=== PATIENT | female | born 1935 | race Caucasian/White ===

== ENCOUNTER 2017-01-06 12:34 | Inpatient (IN) | payer MEDICARE ==
[~2017-01-06] VITALS: Ht 162.6 cm; Wt 64.9 kg
--- NOTE | ~2017-01-06 | HEMODYNAMI ---
PATIENT:ALLAN JAIN MEDICAL RECORD: [id number] : 31 LOCATION:D.MS [facility] ADMISSION DATE: 01/06/17 Generatedon:01/14/201712:50 Patient name: ALLAN JAIN Patient #: [id number] SSN: DO B: 1935 Date of study: 01/14/2017 Page: Of Hemodynamic Procedure Report Patient Data Patient Demographics Procedure consent was obtained First Name: ALLAN Gender: Female Last Name: SUSY : 1935 Middle Initial: ALLAN Age: 81 year(s) Patient #: [id number] Race: Unknown Additional ID: [id number] Contact details [address]: [address] [place] [address] [address] State: [place] City: [place] Zip code: [address] Admission Admission Data Admission Date: 01/06/2017 Admission Time: 14:16 Room #: D.2205 Procedure Procedure Types Cath Procedure Peripheral Cath Diagnostic Procedure Miscellaneous Procedure Description Procedure Date Procedure Date: 01/14/2017 Procedure Start Time: 11:56 Procedure Staff Name Function Andrew Bradshaw MD Performing Physician Gloria Alcantara RT Scrub Malena Babcock RN Nurse Maykel Solis RT Monitor Procedure Data Cath Procedure Fluoroscopy Diagnostic fluoroscopy Total fluoroscopy Time: 8.3 time: 8.3 min min Diagnostic fluoroscopy Total fluoroscopy dose: 183 dose: 183 mGy mGy Procedure Medications Medication Administration Route Dosage Oxygen NC 3 l/min Lidocaine 1% added to field 20 Heparin Flush Bag added to field 1 bags (1000units/500ml NS) Benadryl I.V. 50 mg Fentanyl I.V. 50 mcg Fentanyl I.V. 50 mcg Vancomycin I.V.P.B 500 mg Versed I.V. 1 mg Fentanyl I.V. 50 mcg Versed I.V. 0.5 mg Fentanyl I.V. 25 mcg Versed I.V. 0.5 mg Hemodynamics Rest Heart Rate: 89 (bpm) Snapshots Pre Cath Intra NCS Post Cath Vital Signs Time Heart Resp SPO2 NIBP (mmHg) Rhythm Pain Status Sedation Rate (ipm) (%) Level (bpm) 11:37:15 93 14 100 152/76(124) NSR 5 (11) , 10(A) Very distressing 11:41:40 94 15 100 153/78(113) NSR 3 (11) , 10(A) Tolerable 11:46:02 93 31 100 155/77(106) NSR 3 (11) , 10(A) Tolerable 11:50:22 91 15 100 145/71(116) NSR 0 (11) , No 10(A) pain 11:54:44 92 12 100 142/70(102) NSR 0 (11) , No 10(A) pain 11:59:06 91 11 100 144/62(105) NSR 0 (11) , No 10(A) pain 12:03:30 90 14 100 136/66(100) NSR 0 (11) , No 9(A) pain 12:08:54 88 16 100 136/64(83) NSR 0 (11) , No 9(A) pain 12:13:20 91 11 99 149/57(119) NSR 0 (11) , No 9(A) pain 12:18:36 89 13 99 154/67(127) NSR 0 (11) , No 9(A) pain 12:23:04 90 13 99 154/73(121) NSR 0 (11) , No 9(A) pain 12:27:32 91 15 98 146/76(112) NSR 0 (11) , No 9(A) pain 12:31:55 89 13 96 129/73(93) NSR 0 (11) , No 9(A) pain 12:36:15 89 12 94 135/62(67) NSR 0 (11) , No 9(A) pain 12:41:14 86 19 93 Measuring NSR 0 (11) , No 9(A) pain 12:41:30 88 19 95 146/66(95) NSR 0 (11) , No 9(A) pain 12:49:30 No Cuff NSR 0 (11) , No 9(A) pain Medications Time Medication Route Dose Verified Delivered Reason Notes E ffectiveness by by 11:37:35 Oxygen NC 3 Malena Malena Per protocol l/min King ROMELIA Babcock RN 11:37:46 Lidocaine 1% added 20ml Malena Malena for local to vial King ROMELIA Babcock ROMELIA anesthetic field 11:37:59 Heparin Flush added 1 Malena Malena used for Bag to bags King ROMELIA Babcock RN procedure (1000units/500ml field NS) 11:38:15 Benadryl I.V. 50 mg Malena Malena for sedation King ROMELIA Babcock RN 11:38:30 Fentanyl I.V. 50 Malena Malena back pain mcg King ROMELIA Babcock RN 03/06 11:42:59 Fentanyl I.V. 50 Malena Malena back pain mcg King ROMELIA Babcock RN 01/04 11:57:20 Vancomycin I.V.P.B 500 Malena Malena prophylactic mg King ROMELIA Babcock RN 12:01:46 Versed I.V. 1 mg Malena Malena for sedation King ROMELIA Babcock RN 12:06:33 Fentanyl I.V. 50 Malena Malena for sedation mcg King ROMELIA Babcock RN 12:19:23 Versed I.V. 0.5 Malena Malena for sedation mg King ROMELIA Babcock RN 12:19:30 Fentanyl I.V. 25 Malena Malena for sedation mcg King ROMELIA Babcock RN 12:22:58 Versed I.V. 0.5 Malena Malena for sedation mg King ROMELIA Babcock RN Procedure Log Time Note 11:24:02 Maykel Solis RT (R) (CV) sent for patient. Start room use. 11:24:08 Time tracking: Regular hours 11:24:12 Plan of Care:Hemodynamics will remain stable., Cardiac rhythm will remain stable., Comfort level will be maintained., Respiratory function will remain adequate., Patient/ family verbilizes understanding of procedure., Procedure tolerated without complication., Recovers from procedure without complications.. 11:24:46 Patient received from Med/Surg to IR Alert and oriented. Tansferred to table in Prone position. 11:24:48 Correct patient and procedure confirmed by team. 11:24:50 Signed procedure consent form obtained from patient. 11:24:51 ECG and BP/O2 sat monitors applied to patient. 11:24:55 Rhythm: sinus rhythm 11:24:56 Full Disclosure recording started 11:24:57 - 11:25:02 H&P Date Dictated: 01/14/2017 Within 30 days and on chart.. 11:25:03 Pre-procedure instructions explained to patient. 11:25:04 Pre-op teaching completed and patient verbalized understanding. 11:25:05 Family in waiting room. 11:25:13 Patient NPO since Midnight. 11:25:40 Is patient on blood thinner?No 11:26:00 ----Pre-sedation anethsthesia assessment.---- 11:26:03 Previous problem with sedation/anesthesia? No ? 11:26:10 Snore? Yes 11:26:11 Sleep apnea? No 11:26:14 Deviated septum? No 11:26:15 Opens mouth fully? Yes 11:26:16 Sticks out tongue? Yes 11:26:19 Airway obstruction? No ? 11:26:22 Dentures? Yes ? 11:26:30 Patient pain scale 0/10 no pain. 11:26:38 IV patent on arrival in left wrist with 0.9% NaCl at [facility]. 11:26:48 Use device set IR Diagnostic 11:26:49 Sterile Angiographic Pack opened to sterile field. 11:26:50 Bag Decanter opened to sterile field. 11:35:53 Baseline sample Acquired. 11:35:53 Vital chart was started 11:36:18 Thoracic area was prepped with chlora-prep and draped in sterile fashio n 11:36:22 Alarms reviewed by R. N. 11:36:23 Sharps counted by scrub and verified by R.N. 11:37:35 Oxygen 3 l/min NC was administered by Malena Babcock RN; Per protocol; 11:37:46 Lidocaine 1% 20ml vial added to field was administered by Malena Babcock RN; for local anesthetic; 11:37:59 Heparin Flush Bag (1000units/500ml NS) 1 bags added to field was administered by Malena Babcock RN; used for procedure; 11:38:15 Benadryl 50 mg I.V. was administered by Malena Babcock RN; for sedation; 11:38:30 Fentanyl 50 mcg I.V. was administered by Malena Babcock RN; back pain 5/10 ; 11:42:59 Fentanyl 50 mcg I.V. was administered by Malena Babcock RN; back pain 01/04 ; 11:56:12 Physician arrived :: --------ALL STOP TIME OUT------ 11:56:13 Final Timeout: patient, procedure, and site verified with staff and physician. All members of the team are in agreement. 11:56:18 Thoracic site verified by team. 11:56:22 Physical assessment completed. ASA score P 3 - A patient with severe systemic disease as per Andrew Bradshaw MD. 11:56:25 Sedation plan: IV Moderate Sedation Versed, Fentanyl 11:56:36 Procedure started. 11:56:43 Local anesthetic to Thoracic area with Lidocaine 1% by Andrew Bradshaw MD.INITIAL ACCESS ONLY 11:57:20 Vancomycin 500 mg I.V.P.B was administered by Malena Babcock RN; prophylactic; 12:01:46 Versed 1 mg I.V. was administered by Malena Babcock RN; for sedation; 12:06:33 Fentanyl 50 mcg I.V. was administered by Malena Babcock RN; for sedation; 12:15:28 bx t-11 taken 12:18:12 TC 15/2 VERT AUGMENTATION opened to sterile field. 12:18:13 Tc BONE BX 11GA kit opened to sterile field. 12:18:14 Tc 11G Curved Needle opened to sterile field. 12:18:16 TC AUTOPLEX MIXER W/VHV opened to sterile field. 12:19:23 Versed 0.5 mg I.V. was administered by Malena Babcock RN; for sedation; 12:19:30 Fentanyl 25 mcg I.V. was administered by Malena Babcock RN; for sedation; 12:22:58 Versed 0.5 mg I.V. was administered by Malena Babcock RN; for sedation; 12:32:23 Procedure ended.(Physican Out) 12:32:47 Fluoroscopy time 08.30 minutes. 12:32:53 Fluoroscopy dose: 183 mGy 12:32:53 Flurop Dose total: 183 12:33:01 Sharps counted by scrub and verified by R.N. 12:33:03 Insertion/operative site no bleeding no hematoma. 12:33:15 Post Thoracic area:stable 12:33:30 Post-procedure physical assessment completed. ASA score P 3 - A patient with severe systemic disease as per Andrew Bradshaw MD. 12:33:34 Post procedure rhythm: sinus rhythm 12:33:58 Post procedure instruction explained to patient.Patient verbalizes understanding. 12:33:59 Procedure and supply charges have been captured, reviewed, submitted an d are correct. 12:49:46 Report given to Med/Surg. 12:49:54 Patient transfered to Med/Surg with Bed. 12:50:20 Vital chart was stopped Device Usage Item Name Manufacture Quantity Catalog Hospital Part Current Minim al Lot# / Number Charge Number Stock Stock Serial# Code Sterile Cardinal 1 [id number] 5 Angiographic Health Pack Bag Decanter Microtek 1 [id number] [id number] [id number] 5 [employer] TC 15/2 Tc 1 [id number] [id number] [id number] [id number] 5 VERT AUGMENTATION Tc BONE [place] 1 [id number] [id number] [id number] 517023 5 BX 11GA kit Tc 11G [place] 1 [phone] 572193 346702 5 Curved Needle TC [place] 1 [phone] 986380 07778 175180 5 AUTOPLEX MIXER W/VHV Signature Audit [place] Stage Time Signature Unsigned Intra-Procedure 01/14/2017 Maykel 12:50:18 PM [place] RT (R) (CV) Signatures Monitor : Maykel Signature : Carmelinaield RT Date : Time : [facility] [address] [place] [address]
[~2017-01-06 12:34] MED LIST: AMBIEN10 MG PO; ANUSOL-HC 2.5%30 GM RC; CALTRATE 600 M600 M1 PO; CATAPRES0.1 MG PO; CELEXA40 MG PO; CYCLOBENZAPRINE10 MG PO; IPRAT-ALBUT 0.5-3 ML UPD; MELATONIN 10 M1 EACH PO; NEURONTIN 300300 MG PO; NORCO 7.5/325 T1 TA1 PO; NORVASC10 MG PO; PLAVIX75 MG PO; PREVACID30 MG PO; SINGULAIR10 MG PO; XANAX0.25 MG PO; ZESTRIL40 MG PO
[2017-01-06 13:22] LABS: BASOPHILS 0.2 % (0.0-2.0); EOSINOPHILS 0.7 % (0-7); HEMATOCRIT 41.9 % (36.0-48.0); HEMOGLOBIN 14.2 g/dL (12-16); IMMATURE GRANULOCYTES 0.4 % (0-5); LYMPHOCYTES 19.1 % (15-50); MCH 30.1 pg (26.0-34.0); MCHC 33.9 g/dL (31.0-37.0); MONOCYTES 8.7 % (2-11); NEUTROPHILS 70.9 % (40-80); RBC 4.71 10x6/uL (4.00-5.40); RDW 12.7 % (11.5-14.5); WBC 12.2 10x3/uL (4.8-10.8)
[2017-01-06 13:25] LABS: PLATELET COUNT 344 10x3/uL (130-400)
[2017-01-06 13:33] LABS: ALBUMIN 3.6 g/dL (3.4-5.0); ALKALINE PHOSPHATASE 75 U/L (46-116); ALT (SGPT) 45 U/L (10-68); BILIRUBIN - TOTAL 0.74 mg/dL (0.2-1.3); CALC OSMOLALITY 280 mosm/kg (275-300); CALCIUM 8.1 mg/dL (8.5-10.1); CARBON DIOXIDE 27.4 mmol/L (21.0-32.0); CHLORIDE - SERUM 101 mmol/L (98-107); CREATININE - SERUM 1.1 mg/dL (0.6-1.3); GLUCOSE 95 mg/dL (74-106); POTASSIUM - SERUM 4.1 mmol/L (3.5-5.1); SODIUM 138 mmol/L (136-145); UREA NITROGEN 27 mg/dL (7-18); eGFR NON AFRICAN AMERICAN 50 mL/min (90-120)
[2017-01-06 13:54] LABS: PRO BNP 232 pg/mL (0-450)
[2017-01-06 13:55] LABS: CKMB 14.8 U/L (0.0-3.6); CREATINE KINASE 1288 UL (21-215); TROPONIN-I < 0.017 ng/mL (0.000-0.060)
[2017-01-06 14:05] LABS: INR 1.03 (0.85-1.17); PROTIME 13.3 SECONDS (11.6-15.0)
[2017-01-06 14:08] LABS: APTT < 20.0 SECONDS (22.8-39.4)
--- NOTE | 2017-01-06 14:30 | NUR ---
REPORT REC'D FROM ROMELIA SAGASTUME. ROOM READY AND AWAITING PT ARRIVAL.
--- NOTE | 2017-01-06 15:21 | NUR ---
SPOKE WITH SHASHANK FROM MRI. WILL ALERT HER UPON PT ARRIVAL.
--- NOTE | 2017-01-06 17:31 | NUR ---
PT REC'D TO ROOM FROM MRI. ALERT TO SELF, PLACE, AND SITUATION ONLY. THINKS IT IS 1976. EASILY REORIENTED. UNABLE TO IDENTIFY DAUGHTER, MINH AT BEDSIDE. FACE IS FLUSHED AND PT IS SWEATING. KEEPS SAYING, "PAIN." REGULAR HEART RATE AND RHYTHM. TELEMETRY APPLIED. RUNNING 90 SR. LUNG SOUNDS CLEAR AND EQUAL BILAT. BOWEL SOUNDS ACTIVE X4 QUADRANTS. HAND GEAR TOOTH GRINDING MACHINE OPERATOR STRONG AND EQUAL, FOOT PUMP WEAK BUT EQUAL. BED LOW, CALL LIGHT IN REACH, DENIES NEEDS. CPOC.
--- NOTE | 2017-01-06 18:14 | NUR ---
DR. MIDDLETON PAGED REGARDING PAIN MEDICATION.
[2017-01-06 18:47] VITALS: BP 113/62; BMI 24.6
--- NOTE | 2017-01-06 19:20 | NUR ---
ASSESSMENT COMPLETED, 22 G IV SITED IN R WRIST X2 ATTEMPTS, STAS WELL, FALL PRECAUTIONS IN PLACE, CL IN REACH, WILL MONITOR
--- NOTE | 2017-01-06 19:51 | NUR ---
PRN HYDROCODONE GIVEN FOR C/O BACK PAIN 08/06, STAS WELL, FALL PRECAUTIONS IN PLACE, CL IN REACH, WILL MONITOR
[2017-01-06 21:00] VITALS: BP 174/57
--- NOTE | 2017-01-06 21:01 | NUR ---
DR. JHONATHAN LUJAN, WILL IMPLEMENT ORDERS WHEN RECIEVED
--- NOTE | 2017-01-06 23:00 | NUR ---
IV FLUID STARTED, [address] USING CORRECTIONS CADET PER ORDERS, STAS WELL , LINEN/GOWN CHANGE DONE, REPOSITIONED IN BED, MAGO ALARM ON, SR'S UP ,CL IN REACH
[2017-01-07] VITALS: BP 150/60
--- NOTE | 2017-01-07 00:35 | NUR ---
PRN PAIN MEDS GIVEN FOR C/O BACK PAIN 06/06, REPOSITIONED IN BED, STAS WELL, FALL PRECAUTIONS AND ALARM IN PLACE, CL IN REACH
--- NOTE | 2017-01-07 03:33 | NUR ---
RESTING WITH EYES CLOSED, RESP WITH EASE, NO SS OF PAIN OR DISTRESS NOTED, FALL PRECAUTIONS IN PLACE, CL IN REACH
[2017-01-07 04:00] VITALS: BP 175/61
--- NOTE | 2017-01-07 08:03 | NUR ---
PT ASSESSMENT COMPLETE AWAKE AND ALERT ORIENTED X 3 LUNGS CLEAR BILATERALLY HR IRREGULAR ON TELEMETRY NOTED UCAF RATE 128 WILL MONITOR. BSA X 4 QUADS KONG CATHETER PATENT TO CLEAR YELLOW URINE PER GRAVITY FLOW. HAS BED ALARM IN PLACE. WILL MONITOR
[2017-01-07 08:37] VITALS: BP 134/83
--- NOTE | 2017-01-07 09:00 | NUR ---
PATIENT IN MID LARA POSITION RESTING QUIETLY. NO SIGNS OF DISTRESS NOTED. PRIMARY NURSE LAVELLE CAMILO AT BEDSIDE. SIDE RAILS UP X2. BED IN LOW POSITION. CALL LIGHT IN REACH.
--- NOTE | 2017-01-07 09:18 | NUR ---
PT GIVEN NORCO PER ORDER FOR PAIN CONTROL STATED PAIN LEVEL 10 WILL MONITOR EFFECTIVENESS.
[2017-01-07 10:14] LABS: BASOPHILS 0.2 % (0.0-2.0); EOSINOPHILS 0.2 % (0-7); HEMATOCRIT 44.4 % (36.0-48.0); HEMOGLOBIN 15.1 g/dL (12-16); IMMATURE GRANULOCYTES 0.3 % (0-5); LYMPHOCYTES 15.4 % (15-50); MCH 30.4 pg (26.0-34.0); MCV 89.3 fL (80.0-100.0); MEAN PLATELET VOLUME 9.8 fL (7.4-10.4); NEUTROPHILS 76.9 % (40-80); PLATELET COUNT 365 10x3/uL (130-400); RBC 4.97 10x6/uL (4.00-5.40); RDW 12.9 % (11.5-14.5); WBC 11.9 10x3/uL (4.8-10.8)
[2017-01-07] MEDS ORDERED: LIPITOR20 MG PO (10:29)
[2017-01-07] MEDS ORDERED: COREG6.25 MG PO (10:29)
[2017-01-07 10:42] LABS: ALBUMIN 3.5 g/dL (3.4-5.0); ALKALINE PHOSPHATASE 79 U/L (46-116); ALT (SGPT) 45 U/L (10-68); BILIRUBIN - TOTAL 0.89 mg/dL (0.2-1.3); CALCIUM 8.7 mg/dL (8.5-10.1); CARBON DIOXIDE 24.1 mmol/L (21.0-32.0); CHLORIDE - SERUM 105 mmol/L (98-107); GLUCOSE 113 mg/dL (74-106); POTASSIUM - SERUM 3.8 mmol/L (3.5-5.1); PROTEIN - SERUM 7.1 g/dL (6.4-8.2); SODIUM 141 mmol/L (136-145); eGFR NON AFRICAN AMERICAN 85 mL/min (90-120)
[2017-01-07 10:43] LABS: CALC OSMOLALITY 283 mosm/kg (275-300); CREATININE - SERUM 0.7 mg/dL (0.6-1.3); UREA NITROGEN 18 mg/dL (7-18)
--- NOTE | 2017-01-07 11:41 | NUR ---
BEDSIDE SWALLOW STUDY IN PROGRESS AT THIS TIME PER PATIENT REGISTRATION SUPERVISOR. WILL AWAIT RESULTS
[2017-01-07 12:30] VITALS: BP 158/75
[2017-01-07 13:20] VITALS: Ht 162.6 cm; Wt 64.9 kg
--- NOTE | 2017-01-07 13:43 | NUR ---
PAIN TREATED PER ORDER AT THIS TIME WITH NORCO. CALL LIGHT IN REACH SIDE RAILS UP X 2
--- NOTE | 2017-01-07 16:10 | NUR ---
PT HAD BONE SCAN DONE JUST RETURNED TO ROOM TOLERATED WELL REPOSITIONED PER STAFF FOR COMFORT.
[2017-01-07 16:53] VITALS: BP 169/69
--- NOTE | 2017-01-07 18:10 | NUR ---
OT NOTE: PT COMPLETED SELF GROOMING WITH SET UP. PT COMPLETED BUE AROM EXS FOR INCREASED ACTIVITY TOLERANCE. PT COMPLETED BED MOB WITH CGA/MIN. THANK YOU, SUSAN SHEFFIELD/Kareem
--- NOTE | 2017-01-07 19:45 | NUR ---
ASSESSMENT COMPLETED, NO ACUTE DISTRESS NOTED, FAMILY IN ROOM, DENIES NEEDS AT THIS TIME, FALL PRECAUTIONS IN PLACE, CL IN REACH
[2017-01-07 20:00] VITALS: BP 138/61
--- NOTE | 2017-01-07 21:14 | NUR ---
PRN NORCO GIVEN FOR C/O BACK PAIN 07/07 ALONG WITH ROUTINE MEDS, STAS WELL, SAFETY PRECAUTIONS IN PLACE, CL IN REACH
--- NOTE | 2017-01-07 23:26 | NUR ---
RESTING WITH EYES CLOSED, RESP WITH EASE, NO DISTRESS NOTED, SR'S UP , CL IN REACH
--- NOTE | 2017-01-08 00:09 | NUR ---
NS HUNG PER MAR, PT REPOSITIONED IN BED, STAS WELL, CL IN REACH
[2017-01-08 04:00] VITALS: BP 160/63
[2017-01-08 05:22] LABS: BASOPHILS 0.3 % (0.0-2.0); EOSINOPHILS 1.9 % (0-7); HEMOGLOBIN 13.8 g/dL (12-16); IMMATURE GRANULOCYTES 0.2 % (0-5); LYMPHOCYTES 22.2 % (15-50); MCH 29.4 pg (26.0-34.0); MCHC 32.9 g/dL (31.0-37.0); MCV 89.4 fL (80.0-100.0); MEAN PLATELET VOLUME 9.9 fL (7.4-10.4); MONOCYTES 7.7 % (2-11); NEUTROPHILS 67.7 % (40-80); PLATELET COUNT 353 10x3/uL (130-400); RDW 12.7 % (11.5-14.5); WBC 12.1 10x3/uL (4.8-10.8)
--- NOTE | 2017-01-08 05:36 | NUR ---
PROTONIX GIVEN PER MAR, STAS WELL, DENIES PAIN OR NEEDS, SAFETY PRECAUTIONS IN PLACE, CL IN REACH
[2017-01-08 05:37] LABS: ALBUMIN 3.2 g/dL (3.4-5.0); ANION GAP 11.8 mmol/L (8-16); BILIRUBIN - TOTAL 0.67 mg/dL (0.2-1.3); CALCIUM 8.5 mg/dL (8.5-10.1); CARBON DIOXIDE 26.6 mmol/L (21.0-32.0); CREATININE - SERUM 0.8 mg/dL (0.6-1.3); POTASSIUM - SERUM 3.4 mmol/L (3.5-5.1); PROTEIN - SERUM 6.3 g/dL (6.4-8.2)
--- NOTE | 2017-01-08 05:44 | NUR ---
SOLITARIO GAONA STARTED PER E. PROTOCOL FOR LEVEL OF 3.4, STAS WELL
--- NOTE | 2017-01-08 08:00 | NUR ---
PATIENT IN LOW LARA POSITION RESTING QUIETLY. RESPIRATIONS EVEN AND UNLABORED. SIDE RAILS UP X2. BED IN LOW POSITION. CALL LIGHT IN REACH.
--- NOTE | 2017-01-08 08:14 | NUR ---
PT ASSESSMENT COMPLETE AWAKE AND ALERT ORINETED X 3 LUNGS CLEAR BILATERALLY HAS PAIN WITH MOVEMENT TO MID BACK. REPOSITIONED FOR COMFORT PER STAFF CALL LIGHT IN REACH SIDE RAILS UP X 2 KONG PATENT TO CLEAR YELLOW URINE.
[2017-01-08 08:35] VITALS: BP 179/64
--- NOTE | 2017-01-08 10:34 | NUR ---
Rehab Prescreening Consult recieved and the chart has been reviewed. She is a good rehab candidate. Yesterday she did not participate in PT or OT due to pain. She has a IR as well as a Dr Deng consult pending. Rehab will follow her progress. The [facility] has been made aware. Maude Corea RN Clinical Liaison, Rehab
--- NOTE | 2017-01-08 10:43 | NUR ---
PT SITTING UP X 2 HRS IN CHAIR AT BEDSIDE PER ASSIST OF PHYSICAL THERAPY PT AMBULATED 8 FEET WITH ROLLING WALKER AND GAIT BELT.
[2017-01-08 13:05] VITALS: BP 161/72
--- NOTE | 2017-01-08 13:21 | NUR ---
OT NOTE: PT MORE ALERT TODAY , BUT STILL CONFUSED. PT CONSUMED APPROX HALF OF MEAL WITH SET UP OF TRAY; PRACTICED BED MOBILLITY WHICH WAS MUCH IMPROVED FROM YESTERDAY ( WAS MAX ASSIST , TODAY MIN/CGA)
--- NOTE | 2017-01-08 13:30 | NUR ---
Patient Name: ALLAN JAIN Admission Status: ER Accout number: [id number] Admission Date: 01-06-2017 : 1935 Admission Diagnosis: Attending: NIVIA Current LOS: 2 Anticipated DC Date: 01-11-2017 Planned Disposition: [facility] Facility Primary Insurance: MEDICARE A & B Discharge Planning Comments: CM TALKED WITH PATIENTS DAUGHTER (VIVIANA EPPS) REGARDING D/C NEEDS AND PLANS. PATIENT WAS LIVING WITH HER DAUGHTER AND FELL AND DR. KANG ADMITTED HER TO [facility] IN THE SKILLED FACILITY. PATIENT USES A WHEELCHAIR AT FACILITY. PATIENTS PCP IS DR. KANG AND PHARMACY IS [facility] ON [address] PATIENT WILL RETURN TO [facility] AND [facility] AT DISCHARGE. CM WILL CONTINUE TO FOLLOW PATIENT WITH D/C NEEDS AND PLANS. PCP DR. JORGE LUIS [facility] [address] [phone] VIVIANA EPPS (DAUGHTER) [phone] [facility]- [phone] Agricultural Economics Teacher: Prisca Kaur Is the patient Alert and Oriented? No 0 * How many steps to enter\exit or inside your home? 0 0 * PCP DR. KANG 0 * Pharmacy [facility] [address] 0 * Preadmission Environment [facility] Facility 0 * Facility Name [facility] 0 * ADLs Independent 0 * Equipment Wheelchair 0 * List name and contact numbers for known caregivers / representatives who currently or will assist patient after discharge: VIVIANA EPPS (DAUGHTER) [phone] 0 * Additional services required to return to the preadmission environment? Yes 0 * Can the patient safely return to the preadmission environment? Yes 0 * Has this patient been hospitalized within the prior 30 days at any hospital? No 0 Grand Total: 0
--- NOTE | 2017-01-08 13:40 | NUR ---
HAS HAD 20 MG DUCOLAX PER ORDER PER RECTUM WITH NO RESULTS OF THIS ITME BSA X 4 QUADS.
[2017-01-08 13:52] LABS: APPEARANCE HAZY (CLEAR); BACTERIA MODERATE /hpf (NONE SEEN); BILIRUBIN NEGATIVE (NEGATIVE); COLOR STRAW (YELLOW); EPITHELIAL CELLS OCC /hpf (0-5); GLUCOSE NEGATIVE (NEGATIVE); KETONE NEGATIVE (NEGATIVE); LEUKOCYTE ESTERASE 1+ (NEGATIVE); NITRITE NEGATIVE (NEGATIVE); PROTEIN NEGATIVE (NEGATIVE); SPECIFIC GRAVITY 1.015 (1.005-1.020); UROBILINOGEN NORMAL (NORMAL)
[2017-01-08 13:53] LABS: MUCUS <1+ /lpf (NONE SEEN)
[2017-01-08 17:41] VITALS: BP 146/58
--- NOTE | 2017-01-08 19:24 | NUR ---
PATIENT IS RESTING IN BED AND IS CONFUSED TO LOCATION AND TIME. PATIENT DENIES NEEDS AT THIS TIME. BED IN LOWEST POSTION AND CALL LIGHT WITHIN REACH. ENCOURAGED THE PATIENT TO USE HER CALL LIGHT IF SHE HAS NEEDS.
[2017-01-08 20:00] VITALS: BP 180/73
[2017-01-09] VITALS: BP 177/82
[2017-01-09 04:00] VITALS: BP 192/80
[2017-01-09 06:23] LABS: BASOPHILS 0.4 % (0.0-2.0); EOSINOPHILS 2.3 % (0-7); HEMATOCRIT 42.1 % (36.0-48.0); HEMOGLOBIN 13.9 g/dL (12-16); IMMATURE GRANULOCYTES 0.2 % (0-5); LYMPHOCYTES 17.8 % (15-50); MCH 29.3 pg (26.0-34.0); MCV 88.8 fL (80.0-100.0); MEAN PLATELET VOLUME 10.6 fL (7.4-10.4); MONOCYTES 8.2 % (2-11); NEUTROPHILS 71.1 % (40-80); PLATELET COUNT 354 10x3/uL (130-400); RBC 4.74 10x6/uL (4.00-5.40); RDW 13.1 % (11.5-14.5); WBC 13.7 10x3/uL (4.8-10.8)
[2017-01-09 06:27] LABS: ALBUMIN 3.6 g/dL (3.4-5.0); ALKALINE PHOSPHATASE 79 U/L (46-116); BILIRUBIN - TOTAL 1.26 mg/dL (0.2-1.3); CALCIUM 9.2 mg/dL (8.5-10.1); CARBON DIOXIDE 26.9 mmol/L (21.0-32.0); CHLORIDE - SERUM 102 mmol/L (98-107); CREATININE - SERUM 0.7 mg/dL (0.6-1.3); GLUCOSE 117 mg/dL (74-106); POTASSIUM - SERUM 3.5 mmol/L (3.5-5.1); SODIUM 140 mmol/L (136-145); eGFR NON AFRICAN AMERICAN 85 mL/min (90-120)
[2017-01-09 06:38] LABS: ALT (SGPT) 56 U/L (10-68); CALC OSMOLALITY 278 mosm/kg (275-300); UREA NITROGEN 10 mg/dL (7-18)
[2017-01-09 08:20] VITALS: BP 134/68
--- NOTE | 2017-01-09 08:29 | NUR ---
PT SEEN AND ASSESSED. MAGO MAT ON FOR SAFETY. STATES PAIN IN HEAD 06/06 WITH NORCO GIVEN. INCONT OF URINE. BED LINENS CHANGED. MONITOR SHOWS ST OF 140 WITH BP 134/68. CALL LIGHT IN REACH
--- NOTE | 2017-01-09 10:58 | NUR ---
UNABLE TO VOID AFTER TRYING SEVERAL TIMES. KONG INSERTED TO MONITOR ACCURATE I/O. 18FR CATHETER PLACED WITHOUT DIFFICULTY WITH 400CC RETURNED. 120 CC BLOODY FLUID WITH DRESSING CHANGED AT INSERTION SITE. CALL LIGHT IN REACH. USING ELECTROLYSIS OPERATOR MS NEEDED RELATED TO PAIN BUT DROPS BP ALSO
[2017-01-09 12:28] VITALS: BP 135/59
--- NOTE | 2017-01-09 12:40 | NUR ---
NUTRITION MONITORING & EVAL PT TOLERATING REG [facility] SOFT DIET. 25% INTAKE RECENT MEAL. WILL CONTINUE TO PROVIDE DIET, ADD ENSURE TO MEALS. RD FOLLOWING
[2017-01-09 15:47] VITALS: BP 137/58
--- NOTE | 2017-01-09 19:45 | NUR ---
PATIENT RESTING WITH FAMILY AT BEDSIDE. PATIENT DENIES NEEDS AT THIS TIME. BED IN LOWEST POSITION AND CALL LIGHT WITHIN REACH. ENCOURAGED PATIENT TO CALL IF SHE HAS FURTHER NEEDS.
[2017-01-09 20:00] VITALS: BP 160/61
[2017-01-10] VITALS: BP 140/63
[2017-01-10 04:00] VITALS: BP 204/80
[2017-01-10 06:09] LABS: BASOPHILS 0.3 % (0.0-2.0); EOSINOPHILS 3.9 % (0-7); HEMATOCRIT 38.9 % (36.0-48.0); HEMOGLOBIN 12.9 g/dL (12-16); IMMATURE GRANULOCYTES 0.2 % (0-5); LYMPHOCYTES 27.4 % (15-50); MCH 29.7 pg (26.0-34.0); MCHC 33.2 g/dL (31.0-37.0); MCV 89.4 fL (80.0-100.0); MEAN PLATELET VOLUME 10.2 fL (7.4-10.4); MONOCYTES 10.5 % (2-11); NEUTROPHILS 57.7 % (40-80); PLATELET COUNT 294 10x3/uL (130-400); RBC 4.35 10x6/uL (4.00-5.40); RDW 13.2 % (11.5-14.5)
[2017-01-10 06:13] LABS: WBC 9.2 10x3/uL (4.8-10.8)
--- NOTE | 2017-01-10 06:15 | NUR ---
PATIENT'S BP 204/80. SPOKE WITH ELVIE AND SHE ORDERED APRESOLINE IV 10MG TO BE ADMINISTERED FOR SBP>170.
[2017-01-10 06:24] LABS: ALBUMIN 3.1 g/dL (3.4-5.0); ANION GAP 12.1 mmol/L (8-16); BILIRUBIN - TOTAL 0.88 mg/dL (0.2-1.3); CALCIUM 8.9 mg/dL (8.5-10.1); CARBON DIOXIDE 28.6 mmol/L (21.0-32.0); CREATININE - SERUM 0.8 mg/dL (0.6-1.3); POTASSIUM - SERUM 3.7 mmol/L (3.5-5.1); PROTEIN - SERUM 5.9 g/dL (6.4-8.2)
[2017-01-10 08:15] VITALS: BP 158/69
--- NOTE | 2017-01-10 08:33 | NUR ---
PT ASSESSMENT COMPLETE AWAKE AND ALERT ORINETED X 3 LUNGS WITH NOTED RUB TO RIGHT UPPER LOBE. BREATHING TREATMENT IN PROGRESS PER RESPIRATORY THERAPY. OBEYS COMMANDS CALL LIGHT IN REACH SIDE RAILS UP X 2
--- NOTE | 2017-01-10 12:25 | NUR ---
NO ACUTE DISTRESS CLEANED OF INCT EPISODE REPOSITIONED. CALL LIGHT IN REACH SIDE RAILS UP X2
[2017-01-10 12:31] VITALS: BP 136/64
--- NOTE | 2017-01-10 14:00 | NUR ---
PATIENT IS IN BED. HOB 35 DEGREES. RESPIRATIONS ARE EVEN AND UNLABORED. PATIENT DENIES NEEDS. BED IN LOWEST POSITION, CALL LIGHT IN REACH. BED RIALS UP X'S 2.
[2017-01-10 16:02] VITALS: BP 149/58
--- NOTE | 2017-01-10 16:41 | NUR ---
Rehab Note- Awaiting IR procedure at this time due to positive UA. Will continue to follow the patient at this time. Violeta Hurst RN Clinical Liaison, [facility] Rehab/Sandie
--- NOTE | 2017-01-10 17:10 | NUR ---
OT NOTE: PT COMPLETED BUE EXS FOR INCREASED AX TOLERANCE WITH ADLS. PT COMPLETED BED MOB WITH MAX A X 2. PT COMPLETED SIMPLE GROOMING WITH SET UP. THANK YOU, SUSAN SHEFFIELD/Kareem
--- NOTE | 2017-01-10 18:14 | NUR ---
NO ACUTE DISTRESS NTOED AT THIS TIME MEDICATED FOR PAIN PER REQUEST RATED PAIN 8/10 GIVEN NORCO 10/325 1 PO PER REQUEST WILL MONITOR EFFECTIVENESS. ONLY HAD 1 INCT EPISODE TODAY DID TRANSFER TO [facility]
--- NOTE | 2017-01-10 19:30 | NUR ---
PT RECEIVED RESTING IN BED WITH EYES CLOSED. PT AROUSES TO VERBAL STIMULI. PT IS ALERT AND ORIENTED TO PERSON ONLY. BREATH SOUNDS CLEAR BILATERALLY. RESPIRATIONS EVEN AND UNLABORED. BOWEL SOUNDS ACTIVE IN ALL FOUR QUADRANTS. ABD SOFT AND NONTENDER UPON PALPATION. HAND MANAGER LABOR RELATIONS EQUAL. IV TO LEFT WRIST, WITH NS @ 75, NOTED TO BE PATENT. PT DENIES PAIN OR NEEDS AT THIS TIME. CALL LIGHT AND H2O IN PT REACH. SIDE RAILS UP X2. BED IN LOW POSITION.
[2017-01-10 20:00] VITALS: BP 159/69
--- NOTE | 2017-01-10 21:30 | NUR ---
PT RESTING IN BED WITH EYES CLOSED. NO S/S OF DISTRESS NOTED. RESPIRATIONS EVEN AND UNLABORED. PT AROUSES TO VERBAL STIMULI. DENIES PAIN OR NEEDS AT THIS TIME. CALL LIGHT AND H2O IN PT REACH. SIDE RAILS UP X2. BED IN LOW POSITION.
--- NOTE | 2017-01-10 23:30 | NUR ---
PT RESTING IN BED WITH EYES CLOSED. NO S/S OF DISTRESS NOTED. RESP EVEN AND ULABORED. PT ABLE TO VOICE NEEDS, NO COMPLAINTS OR NEEDS VOICED AT THIS TIME. CALL LIGHT AND H2O IN PT REACH. SIDE RAILS UP X2. BED IN LOW POSITION.
[2017-01-11] VITALS: BP 166/76
--- NOTE | 2017-01-11 01:30 | NUR ---
PT RESTING IN BED WITH EYES CLOSED. NO S/S OF DISTRESS NOTED. RESP EVEN AND UNLABORED. PT ABLE TO VOICE NEEDS, NO COMPLAINTS OR NEEDS VOICED AT THIS TIME. CALL LIGHT AND H2O IN PT REACH. SIDE RAILS UP X2. BED IN LOW POSITION.
--- NOTE | 2017-01-11 03:30 | NUR ---
INCONTINENT BLADDER EPISODES NOTED X4 REQUIRED TOTAL BED CHANGE. PT NOTED TO BE CONTINENT EARLIER IN SHIFT USING BED GILMORE OR BSC. PT STATES, "I DON'T EVEN REALIZE I HAVE TO GO UNTIL I'M ALREADY ALL WET." NO S/S OF DISTRESS CURRENTLY NOTED. RESPIRATIONS EVEN AND UNLABORED. PT DENIES PAIN OR NEEDS AT THIS TIME. CALL LIGHT AND H2O IN PT REACH. BED IN LOW POSITION. SIDE RAILS UP X2.
[2017-01-11 04:00] VITALS: BP 157/73
--- NOTE | 2017-01-11 04:00 | NUR ---
PATIENT SLEEPING WITH NO DISTRESS NOTED. AGREE WITH PONY ROLL FINISHER ASSESSMENT.
--- NOTE | 2017-01-11 05:30 | NUR ---
PT RESTING IN BED WITH EYES CLOSED. NO S/S OF DISTRESS NOTED. RESP EVEN AND UNLABORED. PT ABLE TO VOICE NEEDS, NO COMPLAINTS OR NEEDS VOICED AT THIS TIME. PT NOTED TO HAVE 2 MORE INCONTINENT BLADDER EPISODES IN THE PAST 2 HOURS REQUIRING LINEN CHANGE. CALL LIGHT AND H2O IN PT REACH. BED IN LOW POSITION. SIDE RAILS UP X2.
[2017-01-11 06:31] LABS: BASOPHILS 0.3 % (0.0-2.0); EOSINOPHILS 4.5 % (0-7); HEMATOCRIT 38.1 % (36.0-48.0); HEMOGLOBIN 12.7 g/dL (12-16); IMMATURE GRANULOCYTES 0.4 % (0-5); LYMPHOCYTES 24.7 % (15-50); MCH 29.7 pg (26.0-34.0); MCHC 33.3 g/dL (31.0-37.0); MCV 89.2 fL (80.0-100.0); MEAN PLATELET VOLUME 10.3 fL (7.4-10.4); MONOCYTES 7.2 % (2-11); NEUTROPHILS 62.9 % (40-80); PLATELET COUNT 337 10x3/uL (130-400); RBC 4.27 10x6/uL (4.00-5.40); RDW 13.6 % (11.5-14.5); WBC 11.4 10x3/uL (4.8-10.8)
[2017-01-11 06:55] LABS: ANION GAP 12.2 mmol/L (8-16); BILIRUBIN - TOTAL 0.9 mg/dL (0.2-1.3); CALCIUM 8.7 mg/dL (8.5-10.1); CARBON DIOXIDE 27.4 mmol/L (21.0-32.0); CREATININE - SERUM 0.8 mg/dL (0.6-1.3); POTASSIUM - SERUM 3.6 mmol/L (3.5-5.1); PROTEIN - SERUM 5.9 g/dL (6.4-8.2)
--- NOTE | 2017-01-11 07:53 | NUR ---
PT AOX4 RESP EVEN AND NONLABORED PT DENIES NEEDS AT THIS TIME IV LEFT HAND PATENT AND INTACT BED AT LOWEST SETTING AND CALL LIGHT WITHIN REACH WILL CONTINUE TO MONITOR
[2017-01-11 08:09] VITALS: BP 123/69
[2017-01-11 12:12] VITALS: BP 140/53
[2017-01-11 15:48] VITALS: BP 149/62
--- NOTE | 2017-01-11 16:24 | NUR ---
OT NOTE: PT COMPLETED FM SKILLS FOR INCREASED I WITH ADLS. PT COMPLETED BED MOB WITH SVETLANA Jean. PT COMPLETED GROOMING TASK WITH SET UP. THANK YOU, SUSAN SHEFFIELD/Kareem
--- NOTE | 2017-01-11 19:30 | NUR ---
PT RECEIVED RESTING IN BED WITH EYES CLOSED. AROUSES TO VERBAL STIMULI. PT IS ALERT AND ORIENTED X3, DISORIENTED TO SITUATION AT THIS TIME. BREATH SOUNDS CLEAR BILATERALLY. RESPIRATIONS EVEN AND UNLABORED. BOWEL SOUNDS ACTIVE IN ALL FOUR QUADRANTS. ABD SOFT AND NONTENDER UPON PALPATION. PT ASSISTED ON BED GILMORE PER PT REQUEST, URINE NOTED TO BE CLEAR AND STRAW COLORED. PT DENIES NEEDS OR PAIN AT THIS TIME. HAND SENIOR SALES ASSOCIATE EQUAL. CALL LIGHT AND H2O IN PT REACH. BED IN LOW POSITION. SIDE RAILS UP X2.
[2017-01-11 20:00] VITALS: BP 158/68
--- NOTE | 2017-01-11 21:30 | NUR ---
PT UP IN BED VISITING WITH FAMILY MEMBERS. PT REQUESTS ASSISTANCE ON BED GILMORE, PT ASSISTED ON BED GILMORE. CLEAR STRAW COLOR URINE NOTED. NO S/S OF DISTRESS NOTED. RESPIRATIONS EVEN AND UNLABORED. PT DENIES PAIN OR NEEDS AT THIS TIME. CALL LIGHT AND H2O IN PT REACH. BED IN LOW POSITION. SIDE RAILS UP X2.
--- NOTE | 2017-01-11 23:45 | NUR ---
UA COLLECTED FROM PT VIA IN AND OUT 15 FR RED RUBBER CATHETER USING STERILE TECHNIQUE. PT TOLERATED WELL. CLEAR YELLOW RETURN NOTED AND SENT TO LAB. PT AWAKE AND ALERT. NO S/S OF DISTRESS NOTED. RESPIRATIONS EVEN AND UNLABORED. PT DENIES PAIN OR NEEDS AT THIS TIME. CALL LIGHT AND H2O IN PT REACH. BED IN LOW POSITION. SIDE RAILS UP X2.
[2017-01-12] VITALS: BP 137/65
--- NOTE | 2017-01-12 03:30 | NUR ---
INCONTINENT EPISODE OF BLADDER NOTED REQUIRING TOTAL LINEN CHANGE. UPON COMPLETING LINEN CHANGE, PT REQUESTED TO BE PLACED ON BED GILMORE. 100 ML OF CLEAR STRAW COLORED URINE NOTED. PT DENIES ANY OTHER NEEDS AT THIS TIME. CALL LIGHT AND H2O IN PT REACH. SIDE RAILS UP X2. BED IN LOW POSITION.
[2017-01-12 04:00] VITALS: BP 162/76
[2017-01-12 05:37] LABS: BASOPHILS 0.8 % (0.0-2.0); EOSINOPHILS 7.1 % (0-7); HEMATOCRIT 38.9 % (36.0-48.0); HEMOGLOBIN 12.6 g/dL (12-16); IMMATURE GRANULOCYTES 0.3 % (0-5); MCH 29.1 pg (26.0-34.0); MCHC 32.4 g/dL (31.0-37.0); MCV 89.8 fL (80.0-100.0); MEAN PLATELET VOLUME 10.4 fL (7.4-10.4); MONOCYTES 8.7 % (2-11); NEUTROPHILS 59.1 % (40-80); PLATELET COUNT 314 10x3/uL (130-400); RBC 4.33 10x6/uL (4.00-5.40); RDW 13.3 % (11.5-14.5)
[2017-01-12 05:55] LABS: WBC 7.9 10x3/uL (4.8-10.8)
[2017-01-12 06:10] LABS: ALBUMIN 3.1 g/dL (3.4-5.0); ALKALINE PHOSPHATASE 88 U/L (46-116); ALT (SGPT) 44 U/L (10-68); CALC OSMOLALITY 277 mosm/kg (275-300); CARBON DIOXIDE 29.3 mmol/L (21.0-32.0); CHLORIDE - SERUM 102 mmol/L (98-107); CREATININE - SERUM 0.6 mg/dL (0.6-1.3); GLUCOSE 117 mg/dL (74-106); POTASSIUM - SERUM 3.6 mmol/L (3.5-5.1); PROTEIN - SERUM 6.1 g/dL (6.4-8.2); SODIUM 139 mmol/L (136-145); UREA NITROGEN 11 mg/dL (7-18); eGFR NON AFRICAN AMERICAN > 90 mL/min (90-120)
--- NOTE | 2017-01-12 06:13 | NUR ---
PT RESTING IN BED WITH EYES CLOSED. NO S/S OF DISTRESS NOTED. RESPIRATIONS EVEN AND UNLABORED. PT ABLE TO VOICE NEEDS, NO COMPLAINTS OR NEEDS VOICED AT THIS TIME. CALL LIGHT AND H2O IN PT REACH. SIDE RAILS UP X2. BED IN LOW POSITION.
--- NOTE | 2017-01-12 07:46 | NUR ---
PT AOX4 RESP EVEN AND NONLABORED PT. DENIES NEEDS AT THIS TIME IV TO LEFT WRIST PATENT AND INTACT BED AT LOWEST SETTING AND CALL LIGHT WITHIN REACH WILL CONTINUE TO MONITOR
[2017-01-12 08:30] VITALS: BP 154/64
[2017-01-12 12:54] VITALS: BP 184/74
[2017-01-12 17:00] VITALS: BP 122/68
--- NOTE | 2017-01-12 20:10 | NUR ---
REC'D IN BED AWAKE AND ALERT. RESP EVEN AND UNLABORED WITH NO DISTRESS NOTED. CAN EXPRESS NEEDS AND WANTS. NO C/O NOTED OR VOICED AT THIS TIME. ASSESSMENT COMPLETED. C/L IN REACH AT BEDSIDE.
[2017-01-12 20:44] VITALS: BP 155/68
[2017-01-13 04:00] VITALS: BP 151/65
--- NOTE | 2017-01-13 07:09 | NUR ---
PT AWAKE AND ALERT AT THIS TIME. PRN NORCO-10 2 TABLETS ADMINISTERED FOR PAIN 06/06 LOCATED IN PT'S BACK. IV TO LEFT WRIST PATENT. 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 CALL LIGHT IN REACH. SRX2 WITH BED IN LOWEST POSITION AND WHEELS LOCKED. WILL CONTINUE WITH PLAN OF CARE.
[2017-01-13 07:57] VITALS: BP 169/70
--- NOTE | 2017-01-13 08:45 | NUR ---
SCHEDULED MEDICATIONS ADMINISTERED AT THIS TIME. MIRALAX PROVIDED IN WARM PRUNE JUICE. IV TO LEFT WRIST RE-DRESSED. DENIES FURTHER NEEDS CURRENTLY. CALL LIGHT IN REACH. WILL CONTINUE WITH PLAN OF CARE.
--- NOTE | 2017-01-13 11:30 | NUR ---
SLEEPING AT THIS TIME. RESPIRATIONS EVEN AND NON LABORED. CALL LIGHT IN REACH, DOOR OPEN AND MAGO MAT ALARM IN USE. WILL CONTINUE WITH PLAN OF CARE.
[2017-01-13 12:12] VITALS: BP 146/63
--- NOTE | 2017-01-13 13:35 | NUR ---
PRN NORCO-10 2 TABLETS ADMINISTERED AT THIS TIME FOR PAIN 8/10 AND LOCATED IN HER BACK. PT DID HAVE BOWEL MOVEMENT AT THIS TIME. PLACED ON BEDPAN SO THAT SHE MAY VOID. CALL LIGHT IN REACH, WILL CONTINUE WITH PLAN OF CARE.
[2017-01-13 15:38] VITALS: BP 143/67
--- NOTE | 2017-01-13 16:25 | NUR ---
SLEEPING AT THIS TIME. RESPIRATIONS EVEN AND NON LABORED. CALL LIGHT IN REACH, WILL CONTINUE WITH PLAN OF CARE.
[2017-01-13 20:00] VITALS: BP 145/56
--- NOTE | 2017-01-13 20:00 | NUR ---
REC'D IN BED WITH FAMILY AT BEDSIDE. RESP EVEN AND UNLABORED WITH ON DISTRESS NOTED. CAN EXPRESS NEEDS AND WANTS. DENIES ANY PAIN OR DISCOMFORT AT THIS TIME. INCONT AT TIMES. ASSESSMENT COMPLETED. C/L IN REACH AT BEDSIDE.
[2017-01-14] VITALS (12 sets, daily range): BP systolic 118–163; BP diastolic 52–69
--- NOTE | 2017-01-14 03:00 | NUR ---
RESTING WELL AT THIS TIME WITH NO DISTRESS NOTED. CARLOS CONTINUE TO OBSERVE FOR NEEDS. C/L IN REACH AT BEDSIDE.
--- NOTE | 2017-01-14 04:48 | NUR ---
PATIENT SLEEPING. NO VISIBLE SIGNS OF DISTRESS. BED IN LOWEST POSITION AND CALL LIGHT WITHIN REACH.
[2017-01-14 06:02] LABS: APTT 26.2 SECONDS (22.8-39.4); INR 1.04 (0.85-1.17); PROTIME 13.4 SECONDS (11.6-15.0)
[2017-01-14 06:05] LABS: BASOPHILS 0.5 % (0.0-2.0); EOSINOPHILS 4.7 % (0-7); HEMATOCRIT 36.8 % (36.0-48.0); HEMOGLOBIN 11.9 g/dL (12-16); IMMATURE GRANULOCYTES 0.1 % (0-5); LYMPHOCYTES 21.5 % (15-50); MCH 29.2 pg (26.0-34.0); MCHC 32.3 g/dL (31.0-37.0); MCV 90.2 fL (80.0-100.0); MONOCYTES 8.7 % (2-11); NEUTROPHILS 64.5 % (40-80); PLATELET COUNT 269 10x3/uL (130-400); RBC 4.08 10x6/uL (4.00-5.40); RDW 13.2 % (11.5-14.5); WBC 7.7 10x3/uL (4.8-10.8)
[2017-01-14 06:07] LABS: CALC OSMOLALITY 276 mosm/kg (275-300); CALCIUM 8.9 mg/dL (8.5-10.1); CARBON DIOXIDE 33.3 mmol/L (21.0-32.0); CHLORIDE - SERUM 102 mmol/L (98-107); CREATININE - SERUM 0.6 mg/dL (0.6-1.3); GLUCOSE 123 mg/dL (74-106); POTASSIUM - SERUM 3.7 mmol/L (3.5-5.1); SODIUM 138 mmol/L (136-145); UREA NITROGEN 12 mg/dL (7-18); eGFR NON AFRICAN AMERICAN > 90 mL/min (90-120)
[2017-01-14 07:09] LABS: APPEARANCE CLEAR (CLEAR); BILIRUBIN NEGATIVE (NEGATIVE); COLOR STRAW (YELLOW); GLUCOSE NEGATIVE (NEGATIVE); KETONE NEGATIVE (NEGATIVE); LEUKOCYTE ESTERASE NEGATIVE (NEGATIVE); NITRITE NEGATIVE (NEGATIVE); PROTEIN NEGATIVE (NEGATIVE); UROBILINOGEN NORMAL (NORMAL)
--- NOTE | 2017-01-14 07:20 | NUR ---
PLACED ON BED GILMORE AT THIS TIME. REMAINS NPO FOR POSSIBLE KYPHOPLASTY TODAY. MAGO MAT ALARM IN USE. CALL LIGHT IN REACH. SRX2 WITH BED IN LOWEST POSITION AND WHEELS LOCKED. WILL CONTINUE WITH PLAN OF CARE.
--- NOTE | 2017-01-14 11:25 | NUR ---
TAKEN FOR KYPHOPLASTY AT THIS TIME. WILL MONITOR PT WHEN SHE RETURNS TO ROOM 2205. DAUGHTER NOTIFIED VIA TELEPHONE.
--- NOTE | 2017-01-14 11:43 | NUR ---
Rehab Note- The patient had a negative UA today and to have KP per IR today. Will follow the patient at this time. Can accept the patient to acute rehab when able to participate in therapy. Violeta Hurst RN Clinical Liaison, [facility] Rehab/Sandie
--- NOTE | 2017-01-14 12:50 | NUR ---
REPORT RECEIVED FROM RISA NUNO RN IN IR AT THIS TIME. WILL MONITOR PT WHEN SHE RETURNS TO ROOM 2205.
--- NOTE | 2017-01-14 12:55 | NUR ---
RECEIVED TO ROOM 2205 AT THIS TIME FROM IT. DRESSING TO BACK C/D/I. VITAL SIGNS STABLE. OXYGEN ON 4L VIA NC. SATURATIONS 95%. RESPIRATIONS EVEN AND NON LABORED. CALL LIGHT IN REACH.
--- NOTE | 2017-01-14 16:20 | NUR ---
PRN NORCO-10 2 TABLETS ADMINISTERED FOR PAIN 6/10 AT THIS TIME. EATING PIZZA AT THIS TIME WITHOUT NAUSEA OR VOMITING.
--- NOTE | 2017-01-14 16:49 | NUR ---
01/14/2017 16:48 DCP: Discharge Planning Patient Name: ALLAN JAIN Encounter No: [id number] : 1935 Primary Insurance: MEDICARE A & B Anticipated DC Date: 01-11-2017 Planned Disposition: Assisted Facility External Planned Provider: Colton Gautam DCP follow-up note: Anticipate dc tomorrow. Patient and family in agreement with discharge plan. No changes to plan. Case management will follow and assist as needed. Laverne Bianchi
--- NOTE | 2017-01-14 17:12 | NUR ---
OT NOTE: PT COMPLETED BUE AROM EXERCISES FOR INCREASED AX TOLERANCE. PT COMPLETED BED MOB WITH MOD/MAX A. PT COMPLETED SELF FEEDING AND GROOMING WITH SET UP. THANK YOU, SUSAN SHEFFIELD/Kareem
--- NOTE | 2017-01-14 22:25 | NUR ---
PATIENT RESTING IN LOW FOWLERS POSITION. NO SIGNS OF DISTRESS NOTED. ALERT AND ORIENTED. SCHEDULED MED GIVEN. SHIFT ASSESSMENT COMPLETED. DENIES ANY NEEDS AT THIS TIME. BED LOW CALL LIGHT IN REACH
--- NOTE | 2017-01-15 02:20 | NUR ---
RESTING WITH EYES CLOSED, RESP WITH EASE, NO DISTRESS NOTED, FALL PRECAUTIONS IN PLACE, CL IN REACH
[2017-01-15 05:38] LABS: BASOPHILS 0.2 % (0.0-2.0); EOSINOPHILS 4.6 % (0-7); HEMATOCRIT 38.7 % (36.0-48.0); HEMOGLOBIN 12.2 g/dL (12-16); IMMATURE GRANULOCYTES 0.1 % (0-5); LYMPHOCYTES 19.2 % (15-50); MCH 29.1 pg (26.0-34.0); MCHC 31.5 g/dL (31.0-37.0); MEAN PLATELET VOLUME 9.9 fL (7.4-10.4); MONOCYTES 8.2 % (2-11); NEUTROPHILS 67.7 % (40-80); PLATELET COUNT 268 10x3/uL (130-400); RBC 4.19 10x6/uL (4.00-5.40); RDW 13.4 % (11.5-14.5); WBC 8.5 10x3/uL (4.8-10.8)
[2017-01-15 05:41] LABS: MCV 92.4 fL (80.0-100.0)
[2017-01-15 05:58] LABS: ALBUMIN 3.2 g/dL (3.4-5.0); ANION GAP 8.9 mmol/L (8-16); BILIRUBIN - TOTAL 0.55 mg/dL (0.2-1.3); CARBON DIOXIDE 34.4 mmol/L (21.0-32.0); CREATININE - SERUM 0.8 mg/dL (0.6-1.3); POTASSIUM - SERUM 4.3 mmol/L (3.5-5.1); PROTEIN - SERUM 6.3 g/dL (6.4-8.2)
--- NOTE | 2017-01-15 07:00 | NUR ---
REPORT RECIEVED ASSUMED CARE. PATIENT IN BED WITH IV INTACT. NO COMPLAINTS AT THIS TIME. CALL LIGHT WITHIN REACH.
--- NOTE | 2017-01-15 07:45 | NUR ---
ASSESSMENT COMPLETE, VS STABLE. ASSISTED PATIENT TO BP. DRESSING TO BACK CLEAN AND DRY. NO OCMPLAINTS. CALL LIGHT WITHIN REACH.
--- NOTE | 2017-01-15 09:15 | NUR ---
PATIENT DRESSING CHANGED BY NEURO NURSE. NO COMPLAINTS AT THIS TIME. CALL MELONY GRAJEDA.
--- NOTE | 2017-01-15 09:32 | NUR ---
PATIENT ASSISTED IN GETTING DRESSED BY ASSISTANT TO THE DEAN AT THIS TIME. [facility]. IV INTACT STILL, RECIEVING ANTIBIOTICS. NO COMPLAINTS AT THIS TIME. CALL LIGHT WITHIN REACH.
[2017-01-15] MEDS ORDERED: ASPIRIN325 MG PO (09:59)
--- NOTE | 2017-01-15 10:00 | NUR ---
REPORT CALLED TO R.
--- NOTE | 2017-01-15 10:32 | NUR ---
PATIENT IV REMOVED WITH CATH TIP INTACT. PATIENT RECIEVED DC INSTRUCTIONS. VERBALIZED UNDERSTANDING. NO QUESTIONS AT THIS TIME. O2 REMOVED. SATS 97% ON RA. CALL LIGHT WITHIN REACH.
[2017-02-09] MEDS ORDERED: VITAMIN D250000 UNIT PO (11:20)
== END 2017-01-15 10:39 | DRG 478 ==
LOC: D.ER 12:34 → D.MS 14:16
PROVIDERS: Family Medicine; Radiology Diagnostic Radiology; ADMIT Family Medicine Adult Medicine
PROC: 0PB43ZX Excision of Thoracic Vertebra, Percutaneous Approach, Diagnostic (ICD-10-PCS; 2017-01-14)
PROC: 0PU43JZ Supplement Thoracic Vertebra with Synthetic Substitute, Percutaneous Approach (ICD-10-PCS; 2017-01-14)
PROC: 0PS43ZZ Reposition Thoracic Vertebra, Percutaneous Approach (ICD-10-PCS; principal; 2017-01-14 11:30)
DX: S22.089A Unspecified fracture of T11-T12 vertebra, initial encounter for closed fracture (principal); I47.2 Ventricular tachycardia; N39.0 Urinary tract infection, site not specified; W19.XXXA Unspecified fall, initial encounter; F32.9 Major depressive disorder, single episode, unspecified; K21.9 Gastro-esophageal reflux disease without esophagitis; I10 Essential (primary) hypertension; M62.3 Immobility syndrome (paraplegic); K59.00 Constipation, unspecified; B96.20 Unspecified Escherichia coli [E. coli] as the cause of diseases classified elsewhere; Z85.038 Personal history of other malignant neoplasm of large intestine

== ENCOUNTER 2017-02-08 11:18 | Emergency (ER) | payer MEDICARE ==
[2017-01-07 13:20] VITALS: BMI 24.5
[~2017-02-08 11:18] MED LIST changes: +ASPIRIN325 MG PO; +COREG6.25 MG; +LIPITOR20 MG PO
[2017-02-08 12:44] LABS: APPEARANCE CLOUDY (CLEAR); BILIRUBIN NEGATIVE (NEGATIVE); COLOR YELLOW (YELLOW); GLUCOSE NEGATIVE (NEGATIVE); KETONE NEGATIVE (NEGATIVE); LEUKOCYTE ESTERASE 2+ (NEGATIVE); NITRITE NEGATIVE (NEGATIVE); PROTEIN 1+ mg/dL (NEGATIVE); SPECIFIC GRAVITY 1.015 (1.005-1.020); UROBILINOGEN NORMAL (NORMAL); WHITE CELLS - URINE >50 /hpf (0-5)
[2017-02-08 12:44] LABS: BASOPHILS 0.2 % (0.0-2.0); EOSINOPHILS 0 % (0-7); HEMATOCRIT 38.1 % (36.0-48.0); HEMOGLOBIN 12.4 g/dL (12-16); IMMATURE GRANULOCYTES 0.2 % (0-5); LYMPHOCYTES 24.5 % (15-50); MCH 29.1 pg (26.0-34.0); MCHC 32.5 g/dL (31.0-37.0); MCV 89.4 fL (80.0-100.0); MEAN PLATELET VOLUME 9.4 fL (7.4-10.4); NEUTROPHILS 67.1 % (40-80); RBC 4.26 10x6/uL (4.00-5.40); RDW 13.3 % (11.5-14.5); WBC 9.4 10x3/uL (4.8-10.8)
[2017-02-08 12:48] LABS: BACTERIA MODERATE /hpf (NONE SEEN); EPITHELIAL CELLS 0-5 /hpf (0-5); RED CELLS - URINE 0-5 /hpf (0-5)
[2017-02-08 12:48] LABS: PLATELET COUNT 322 10x3/uL (130-400)
[2017-02-08 13:06] LABS: ALBUMIN 3.4 g/dL (3.4-5.0); ANION GAP 10.9 mmol/L (8-16); BILIRUBIN - TOTAL 0.59 mg/dL (0.2-1.3); CALCIUM 9.1 mg/dL (8.5-10.1); CARBON DIOXIDE 30.4 mmol/L (21.0-32.0); CREATININE - SERUM 0.8 mg/dL (0.6-1.3); POTASSIUM - SERUM 3.3 mmol/L (3.5-5.1); PROTEIN - SERUM 7.1 g/dL (6.4-8.2)
== END 2017-02-08 14:35 | disposition home or self-care (01) ==
LOC: D.ER 11:18
PROVIDERS: Nurse Practitioner Family
DX: M54.5 Low back pain (principal); N39.0 Urinary tract infection, site not specified; M62.830 Muscle spasm of back; Z86.73 Personal history of transient ischemic attack (TIA), and cerebral infarction without residual deficits; K21.9 Gastro-esophageal reflux disease without esophagitis; I10 Essential (primary) hypertension

== ENCOUNTER 2017-02-13 10:50 | Day surgery (SDC) | payer MEDICARE ==
[2017-02-13] VITALS (9 sets, daily range): BP systolic 148–194; BP diastolic 59–89; Ht 162.6 cm; Wt 61.7 kg
[~2017-02-13] VITALS: Ht 162.6 cm; Wt 61.7 kg
[~2017-02-13 10:50] MED LIST changes: -COREG6.25 MG; +COREG6.25 MG PO; +VITAMIN D250000 UNIT PO
[2017-02-13] MEDS ORDERED: HYDROCODONE-APA1 TAB PO (11:15)
[2017-02-13] MEDS ORDERED: SENNA PLUS TA1 UDTAB PO (11:17)
[2017-02-13] MEDS ORDERED: IPRAT-ALBUT 0.5-3 ML UPD (11:24)
[2017-02-13] MEDS ORDERED: ALOPHEN PILLS5 MG PO (11:25)
[2017-02-13] MEDS ORDERED: DULCOLAX5 MG PO (11:25)
[2017-02-13] MEDS ORDERED: ROBAXIN500 MG PO (11:26)
[2017-02-13] MEDS ORDERED: ZOFRAN ODT4 MG/UDTAB PO (11:27)
--- NOTE | 2017-02-13 11:30 | NUR ---
PATIENT RECIEVED TO ROOM 2103 SHE IS AWAKE AND ALERT. HER PERSONAL WHEELCHAIR IS PARKED IN THE CORNER OF THE ROOM.
[2017-02-13 11:43] LABS: BASOPHILS 0.2 % (0.0-2.0); EOSINOPHILS 2.1 % (0-7); HEMATOCRIT 41.7 % (36.0-48.0); HEMOGLOBIN 13.7 g/dL (12-16); IMMATURE GRANULOCYTES 0.1 % (0-5); LYMPHOCYTES 24.5 % (15-50); MCH 29.6 pg (26.0-34.0); MCHC 32.9 g/dL (31.0-37.0); MCV 90.1 fL (80.0-100.0); MEAN PLATELET VOLUME 9.1 fL (7.4-10.4); MONOCYTES 7.6 % (2-11); NEUTROPHILS 65.5 % (40-80); PLATELET COUNT 344 10x3/uL (130-400); RBC 4.63 10x6/uL (4.00-5.40); RDW 13.2 % (11.5-14.5); WBC 8.7 10x3/uL (4.8-10.8)
[2017-02-13 11:53] LABS: INR 1.05 (0.85-1.17); PROTIME 13.5 SECONDS (11.6-15.0)
[2017-02-13 12:01] LABS: ALBUMIN 3.5 g/dL (3.4-5.0); ALKALINE PHOSPHATASE 101 U/L (46-116); ALT (SGPT) 18 U/L (10-68); CALC OSMOLALITY 278 mosm/kg (275-300); CALCIUM 9.4 mg/dL (8.5-10.1); CARBON DIOXIDE 30.3 mmol/L (21.0-32.0); CHLORIDE - SERUM 102 mmol/L (98-107); CREATININE - SERUM 0.7 mg/dL (0.6-1.3); GLUCOSE 112 mg/dL (74-106); POTASSIUM - SERUM 3.5 mmol/L (3.5-5.1); PROTEIN - SERUM 7.2 g/dL (6.4-8.2); SODIUM 140 mmol/L (136-145); UREA NITROGEN 9 mg/dL (7-18); eGFR NON AFRICAN AMERICAN 85 mL/min (90-120)
--- NOTE | 2017-02-13 12:30 | NUR ---
PERSONAL CLOTHING REMOVED, WATCH PLACED IN HER BLUE JEANS POCKET. GOWNS
--- NOTE | 2017-02-13 13:15 | NUR ---
ATTEMPTED 20G IV X3. SUCCESSFUL FLASH EACH TIME BUT UNABLE TO THREAD. WILL NOTIFY ANESTHESIA.
--- NOTE | 2017-02-13 16:20 | NUR ---
PATIENT RECEIVED BACK FROM OR. SHE IS AWAKE AND ALERT, RESTS EYES AFTER CONVERSATION. O2 SATS ARE GOOD. VSS. STERISTRIPS TO THE THORACIC SPINE ARE CLEAN AND INTACT.
--- NOTE | 2017-02-13 16:50 | NUR ---
PATIENT IS RESTING WITH EYES CLOSED. VSS. MONITORING.
--- NOTE | 2017-02-13 18:04 | NUR ---
PATIENT C/O BACK PAIN. 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
--- NOTE | 2017-02-13 20:12 | NUR ---
RESTING IN BED. WAS NPO ALL DAY FOR SURGERY THAT HAS HAPPENED AND SHE IS NOW VERY HUNGRY. WILL PROVIDE MEAL FOR PATIENT. SEE ASSESSMENT. CALL LIGHT IN REACH. CPOC.
--- NOTE | 2017-02-13 20:54 | NUR ---
PT CHANGED FROM NPO TO FULL REGULAR DIET AND HAS NOW EATEN SOUP AND FEELING BETTER. PAIN LEVEL 10/10 FOR HER BACK. HS MEDS GIVEN, INCLUDING HER PAIN MED. WILL MONITOR ELEVATED BLOOD PRESSURE TO SEE IF IT GOES DOWN WITH BP MEDS GIVEN AND PAIN MEDS GIVEN.
[2017-02-14] VITALS: BP 117/52
[2017-02-14 04:00] VITALS: BP 129/54
[2017-02-14 05:30] LABS: BASOPHILS 0.1 % (0.0-2.0); EOSINOPHILS 0 % (0-7); HEMATOCRIT 37.5 % (36.0-48.0); HEMOGLOBIN 12.2 g/dL (12-16); IMMATURE GRANULOCYTES 0.1 % (0-5); LYMPHOCYTES 17.9 % (15-50); MCH 29.2 pg (26.0-34.0); MCHC 32.5 g/dL (31.0-37.0); MCV 89.7 fL (80.0-100.0); MEAN PLATELET VOLUME 9.4 fL (7.4-10.4); MONOCYTES 5.6 % (2-11); NEUTROPHILS 76.3 % (40-80); PLATELET COUNT 375 10x3/uL (130-400); RBC 4.18 10x6/uL (4.00-5.40); RDW 13.2 % (11.5-14.5); WBC 7.8 10x3/uL (4.8-10.8)
[2017-02-14 05:43] LABS: CALC OSMOLALITY 286 mosm/kg (275-300); CALCIUM 9.3 mg/dL (8.5-10.1); CARBON DIOXIDE 28.8 mmol/L (21.0-32.0); CHLORIDE - SERUM 106 mmol/L (98-107); CREATININE - SERUM 0.7 mg/dL (0.6-1.3); GLUCOSE 119 mg/dL (74-106); POTASSIUM - SERUM 3.8 mmol/L (3.5-5.1); SODIUM 144 mmol/L (136-145); UREA NITROGEN 11 mg/dL (7-18); eGFR NON AFRICAN AMERICAN 85 mL/min (90-120)
--- NOTE | 2017-02-14 07:40 | NUR ---
PATIENT LAYING IN BED. ALERT AND ORIENTED TO SELF AND HOSPITAL. DENIES PAIN RELATING "I FEEL SO MUCH BETTER SINCE I CAME HERE." BRUISES TO UPPER EXTS NOTED WITH SMALL INCISION TO MID BACK WITH STERI STRIPS INTACT. DENIES NEEDS. CALL LIGHT WITHIN REACH.
[2017-02-14 08:15] VITALS: BP 138/61
--- NOTE | 2017-02-14 10:36 | NUR ---
CM SPOKE TO PT IN ROOM REGARDING DISCHARGE PLANNING AND NEEDS. PT REPORTS SHE CAME FROM [facility] AND HAS BEEN IN REHAB FOR ONE MONTH. PT WILL RETURN THERE AT DISCHARGE TODAY. PT FEELS SAFE THERE AND REPORTS SHE GETS GOOD CARE. CM CALLED [facility], , SPOKE TO CALUS AND VERIFIED PT'S SKILLED BED STATUS FOR REHAB, [facility] TO ACCEPT BACK TODAY AND WILL ARRANGE VAN TRANSPORT WHEN NOTIFIED OF DISCHARGE. FOR DISCHARGE, FAX DISCHARGE INFORMATION TO [facility], . NURSE REPORT TO BE CALLED TO [facility] AT [phone]. [facility] TO ARRANGE VAN TRANSPORTATION. DANIELA DEAN, CASE MANAGEMENT
[2017-02-14 12:10] VITALS: BP 128/55
--- NOTE | 2017-02-14 12:30 | NUR ---
REPORT CALLED TO CLEMENT TEIXEIRA LPN. IV DC'D WITH CATHETER INTACT.
--- NOTE | 2017-02-14 12:40 | NUR ---
DISCHARGED TO [facility] ACCOMPANIED BY FACILITY STAFF VIA FACILITY VEHICLE. PAPERWORK FAXED AND HARDCOPY SENT WITH FACILTY STAFF. TAKEN TO FACILITY VEHICLE VIA PERSONAL WHEELCHAIR. CONDITION STABLE AT TIME OF DISCHARGE.
--- NOTE | 2017-02-15 10:30 | DS ---
PATIENT:ALLAN JAIN :31 MEDICAL RECORD: [id number] DISCHARGE SUMMARY ADMISSION DATE: 02/13/17 DISCHARGE DATE: 02/14/17 DATE OF ADMISSION: 02/13/2017 DATE OF DISCHARGE: 02/14/2017 ADMITTING DIAGNOSIS: Compression fracture. HOSPITAL COURSE: This is an 81-year-old white female, correction resident from [facility] admitted by Dr. Cooper for diagnoses as outlined above. Details are well-outlined in the history of present illness, H&P. All events, lab procedures, diagnostic testing are well documented in the records. She was admitted. Dr. Salvador with neurosurgery consulted. She was taken to the OR where she underwent kyphoplasty. She tolerated the procedure well, stayed overnight, is stable for dismissal home today by Dr. Salvador's standpoint. She feels good. Her back pain has resolved for now. She will be transferred back to [facility]. Please refer to med rec. DIAGNOSES: 1. Subacute T12 compression fracture, recent cerebrovascular accident, recent T11 compression fracture, status post kyphoplasty. 2. Subacute T12 compression fracture status post kyphoplasty done on 02/13/2017. Greater than 30 minutes spent on this discharge. Please refer to med rec. TRANSINT:[id number] Voice Confirmation ID: [id number] DOCUMENT ID: [id number] Dictated By: ELVIE ORTIZ RN I have interviewed/examined the above patient and agree with these documented findings. LOWELL JOHNSON MD at 1030 at 1550 CC: [id number] DICTATION DATE: 02/14/17 1321 FIELD SERVICE REP: 02/14/17 225 [facility] 02/14/17 [facility] [address] [place] [address]
--- NOTE | 2017-02-21 12:41 | HP ---
PATIENT: ALLAN JAIN MEDICAL RECORD: [id number] ACCOUNT: [id number] LOCATION:[place] : 31 ADMISSION DATE: 02/13/17 HISTORY AND PHYSICAL EXAMINATION CHIEF COMPLAINT: Back pain. HISTORY OF PRESENT ILLNESS: An 81-year-old white female currently in [facility] for falls and generalized weakness. The patient has worsening back pain. X-ray showing 50% compression fracture at T11 with enhancement and bony edema. This is new. She was recently in the hospital for CVA and compression fracture that she underwent kyphoplasty with. At this time, we will admit to the hospital for pain control and kyphoplasty of new compression fracture. REVIEW OF SYSTEMS: Negative as per HPI. PAST MEDICAL HISTORY: 1. Hypertension. 2. GERD. 3. Hyperlipidemia. 4. History of cervical cancer. 5. Depression. 6. CVA. PAST SURGICAL HISTORY: Appendectomy, hysterectomy, sinus surgery, rib removal and kyphoplasty. FAMILY HISTORY: Noncontributory. SOCIAL HISTORY: The patient lives at home with family, nonsmoker and nondrinker. MEDICATIONS: See med rec. ALLERGIES: CODEINE, PENICILLIN, ASPIRIN, PREVACID AND KETOROLAC. PHYSICAL EXAMINATION: GENERAL: No acute distress. HEENT: Normocephalic, atraumatic. NECK: Supple. HEENT: Intact. CHEST: Clear to auscultation bilaterally. CARDIOVASCULAR: Regular rate and rhythm. A II/ systolic ejection murmur. EXTREMITIES: No clubbing, cyanosis or edema. ABDOMEN: Soft, nontender to palpation. Bowel sounds positive. GENITOURINARY: No [place]. SKIN: No rashes. MUSCULOSKELETAL: Pain with flexion and extension of back. NEUROMUSCULAR: Intact. NEUROLOGIC: Awake, alert, oriented times 3. IMAGING: MRI of lumbar spine showing 50% compression fracture at T11, status post kyphoplasty on January 14. X-ray of spine on February 05 showing a T12 anterior compression fracture. HISTORY AND PHYSICAL [id number] ALLAN JAIN ASSESSMENT: 1. Subacute T12 compression fracture. 2. Recent cerebrovascular accident. 3. Recent T11 compression fracture, status post kyphoplasty. PLAN: We will admit the patient to the hospital. Consult Dr. Salvador for kyphoplasty today. Other orders as written on chart. TRANSINT:[id number] Voice Confirmation ID: [id number] DOCUMENT ID: [id number] GREGOR OLMSTEAD MD at 1241 CC: [id number] DICTATION DATE: 02/13/17809 CELL INSTALLER: 02/13/17922 [facility] 02/14/17 [id number] [place] [address]
--- NOTE | 2017-03-10 15:51 | OP ---
PATIENT NAME: ALLAN JAIN MEDICAL RECORD: [id number] :[birth year] LOCATION:[place] ADMISSION DATE: SURGEON: VANDANA SALVADOR MD DATE OF OPERATION: 02/13/2017 PREOPERATIVE DIAGNOSIS: T12 compression fracture secondary to osteoporosis. POSTOPERATIVE DIAGNOSIS: T12 compression fracture secondary to osteoporosis. PROCEDURE: T12 bone biopsy and T12 kyphoplasty with fluoroscopic control. PLACE OF SERVICE: Inpatient hospital, [facility]. SURGEON: Vandana Salvador MD. DESCRIPTION OF TECHNIQUE: After induction of general endotracheal anesthesia, the patient was rolled prone on chest and hip rolls. The thoracic spine was prepped and draped in usual sterile fashion. Fluoroscopic x-ray and SnapSenseshidi needle was used to cannulate the pedicles at T12 on both sides. A trocar was removed and a bone drill was advanced through each cannula. A kyphoplasty balloon was inflated under fluoroscopic control on both sides. The balloons were deflated and the voids created were back filled with methyl methacrylate bone cement. There is good position of the seen on fluoroscopic x-ray. The cannula removed. Each stab incision was closed with a Steri-Strip. Sterile dressing was applied to both wounds. The patient was awakened in good condition and taken to recovery. All counts reported as correct. Estimated blood loss was minimal. TRANSINT:[id number] Voice Confirmation ID: [id number] DOCUMENT ID: [id number] VANDANA SALVADOR MD at 1551 CC: [id number] DICTATION DATE: 03/06/172042 VEIN PUMPER: 03/07/17 0323 [facility] 02/14/17 [place] [id number]
== END 2017-02-14 12:40 ==
LOC: D.OPS 10:50 → D.M2 10:50 → D.OPS 13:00
PROVIDERS: Family Medicine
DX: M80.88XA Other osteoporosis with current pathological fracture, vertebra(e), initial encounter for fracture (principal); Z01.812 Encounter for preprocedural laboratory examination

== ENCOUNTER 2017-04-07 19:50 | Emergency (ER) | payer MEDICARE ==
[2017-02-13 12:30] VITALS: BMI 24.0
[~2017-04-07 19:50] MED LIST changes: +ALOPHEN PILLS5 MG PO; +DULCOLAX5 MG PO; +HYDROCODONE-APA1 TAB PO; +ROBAXIN500 MG PO; +SENNA PLUS TA1 UDTAB PO; +ZOFRAN ODT4 MG/UDTAB PO
== END 2017-04-08 00:30 | disposition home or self-care (01) ==
LOC: D.ER 19:50
DX: M54.6 Pain in thoracic spine (principal); S30.0XXA Contusion of lower back and pelvis, initial encounter; W19.XXXA Unspecified fall, initial encounter; K21.9 Gastro-esophageal reflux disease without esophagitis; I10 Essential (primary) hypertension

== ENCOUNTER → 2019-06-01 14:37 | Outpatient (CLI) | payer MEDICARE, MEDICAID ==
[2017-02-13 12:30] VITALS: BMI 24.0
== END | disposition home or self-care (01) ==
LOC: D.CT 05-29 12:42
PROVIDERS: ATTEND Family Medicine
DX: J02.9 Acute pharyngitis, unspecified (principal)